=== PATIENT | male | born 1975 ===

== ENCOUNTER 2021-03-28 07:06 | Observation (INO) ==
[2021-03-28] MEDS ORDERED: Ondansetron 4 mg VIAL 2 MG/ML 2 ml VIAL IV ONE (08:13)
[2021-03-28] MEDS ORDERED: NS 0.9% 1000 ml BAG 1,000 ML IV ONE (08:13)
[2021-03-28] MEDS ORDERED: Famotidine IV 10 MG/ML 2 ml VIAL (20 mg) IV SLOW PU ONE (08:38)
[2021-03-28 09:31] LABS: Venous Bicarbonate HCO3 29.6 mmol/L (24-28)
[2021-03-28 09:36] LABS: ABS Lymphocytes 0.7 10^3/ul (1.0-4.8); ABS Monocytes 0.4 10^3/ul (0-0.8); ABS Neutrophils 12.6 10^3/ul (1.5-7.7); Eosinophil % 0.1 %; Hematocrit 45 % (42-52); Hemoglobin 15.3 g/dL (14.0-18.0); Lymphocyte % 5.3 %; Mean Corpuscular HGB Conc 34 g/dL (31-36); Mean Corpuscular Hemoglobin 31 pg (27-31); Mean Corpuscular Volume 93 fL (80-94); Mean Platelet Volume 8.3 fL (7.4-10.4); Platelet Count 264 10^3/uL (150-450); Red Blood Count 4.87 10^6 /uL (4.18-5.48); Red Cell Distribution Width 13 % (10-15); White Blood Count 13.8 10^3/uL (3.5-10.8)
[2021-03-28 10:04] LABS: ALT 10 U/L (7-52); AST 9 U/L (13-39); Albumin 4.5 g/dL (3.2-5.2); Albumin/Globulin Ratio 1.8 (1-3); Alkaline Phosphatase 46 U/L (35-149); Anion Gap 8 mmol/L (2-11); Blood Urea Nitrogen 19 mg/dL (6-24); CO2 Carbon Dioxide 27 mmol/L (22-32); Calcium 9.4 mg/dL (8.6-10.3); Chloride 101 mmol/L (101-111); EGFR African American 121.8 (>60); EGFR Non-African American 100.6 (>60); Globulin 2.5 g/dL (2-4); Glucose 141 mg/dL (70-100); Lipase < 10 U/L (11.0-82.0); Potassium 4.2 mmol/L (3.5-5.0); Sodium 136 mmol/L (135-145)
[2021-03-28] MEDS ORDERED: Iohexol 300 (CONTRAST) 10 ML SDV IV ONE (10:25)
[2021-03-28 10:37] LABS: Urine Appearance Clear; Urine Bilirubin Negative (Negative); Urine Blood Negative (Negative); Urine Color Yellow; Urine Glucose Negative (Negative); Urine Ketones 2+ (Negative); Urine Nitrite Negative (Negative); Urine Protein 1+(30 mg/dL) (Negative); Urine Specific Gravity 1.025 (1.002-1.030); Urine Urobilinogen Negative (Negative)
[2021-03-28 10:56] LABS: Urine Bacteria Absent (Absent); Urine Red Blood Cell Absent (Absent); Urine White Blood Cell Absent (Absent)
[2021-03-28] MEDS ORDERED: cefTRIAXone 1 gm/50 mL NS BAG 1 GM/50 ML BAG IV ONE (12:07)
[2021-03-28] MEDS ORDERED: metroNIDAZOLE IV 500 MG/100ML 500 MG/100 ML BAG IVPB ONE (12:07)
[2021-03-28] MEDS ORDERED: HYDROmorphone 0.5 MG/0.5 ML SYRINGE IV SLOW PU PRN (13:38)
[2021-03-28] MEDS ORDERED: metroNIDAZOLE IV 500 MG/100ML 500 MG/100 ML BAG IVPB SCH (14:00)
[2021-03-28] MEDS ORDERED: Ciprofloxacin 400mg IVPREMIX 400 MG/200 ML BAG IVPB SCH (14:00)
[2021-03-28] MEDS: Lactated Ringers 1000 ml BAG 1,000 ML IV SCH (16:17)
[2021-03-28] MEDS: Ciprofloxacin 400mg IVPREMIX 400 MG/200 ML BAG IVPB SCH (17:34)
[2021-03-28] MEDS: metroNIDAZOLE IV 500 MG/100ML 500 MG/100 ML BAG IVPB SCH (20:31)
[2021-03-29] MEDS: Lactated Ringers 1000 ml BAG 1,000 ML IV SCH ×2 (02:18→12:22)
[2021-03-29] MEDS: metroNIDAZOLE IV 500 MG/100ML 500 MG/100 ML BAG IVPB SCH ×3 (04:19→20:41)
[2021-03-29] MEDS: Ciprofloxacin 400mg IVPREMIX 400 MG/200 ML BAG IVPB SCH ×2 (05:43→16:58)
[2021-03-29 06:01] LABS: ABS Eosinophils 0.3 10^3/ul (0-0.6); ABS Lymphocytes 2.1 10^3/ul (1.0-4.8); ABS Monocytes 0.5 10^3/ul (0-0.8); ABS Neutrophils 4.6 10^3/ul (1.5-7.7); Eosinophil % 3.6 %; Hematocrit 40 % (42-52); Hemoglobin 13.9 g/dL (14.0-18.0); Lymphocyte % 27.8 %; Mean Corpuscular HGB Conc 35 g/dL (31-36); Mean Corpuscular Hemoglobin 32 pg (27-31); Mean Corpuscular Volume 92 fL (80-94); Mean Platelet Volume 8.3 fL (7.4-10.4); Platelet Count 210 10^3/uL (150-450); Red Blood Count 4.32 10^6 /uL (4.18-5.48); Red Cell Distribution Width 13 % (10-15); White Blood Count 7.5 10^3/uL (3.5-10.8)
[2021-03-29 06:09] LABS: Calcium 8.6 mg/dL (8.6-10.3); Potassium 3.9 mmol/L (3.5-5.0)
[2021-03-29 06:15] LABS: EGFR African American 127.1 (>60)
[2021-03-30] MEDS: metroNIDAZOLE IV 500 MG/100ML 500 MG/100 ML BAG IVPB SCH (04:52)
[2021-03-30] MEDS: Ciprofloxacin 400mg IVPREMIX 400 MG/200 ML BAG IVPB SCH (06:06)
[2021-03-30 07:24] VITALS: BP 125/77
== END 2021-03-30 11:14 | disposition home or self-care (01) ==
LOC: SSU 07:06 → ED 07:06 → SSU 16:02
PROVIDERS: ADMIT Internal Medicine; ATTEND Surgery Surgical Critical Care

== ENCOUNTER 2023-06-01 08:38 | Observation (INO) ==
[~2023-06-01 08:38] MED LIST: Buffered Lidocaine 1% SYRIN 1 ml INTRADERM ONE; HYDROmorphone 1 MG/1 ML SYRINGE IV PRN; Naloxone 0.4 mg VIAL 0.4 mg/ml 1 ml VIAL IV PRN; Ondansetron 4 mg VIAL 2 MG/ML 2 ml VIAL IV PRN
[2023-06-01] MEDS: Lactated Ringers 1000 ml BAG 1,000 ML IV SCH ×2 (09:22→14:36)
[2023-06-01 09:39] LABS: Rapid COVID-19 Molecular Undetected (Undetected)
[2023-06-01] MEDS ORDERED: Clindamycin 300 MG/D5W BAG 300 MG/50 ML BAG IV ONE (09:55)
[2023-06-01] MEDS ORDERED: Chlorhexidine MOUTHWASH 0.12% 15 ML UDC ONE (09:55)
[2023-06-01] MEDS ORDERED: Clindamycin 600 MG/NS BAG(*) 600 MG/50 ML BAG ONE (09:55)
[2023-06-01] MEDS ORDERED: Thrombin 5,000 UNITS 1 APPLIC KIT - topical use - TOPICAL ONE (10:17)
[2023-06-01] MEDS ORDERED: Lidocaine 1% w EPI 1:100,000 MDV 20 ML VIAL ONE (10:17)
[2023-06-01] MEDS ORDERED: ceFAZolin VIAL VIAL ONE (10:17)
[2023-06-01] MEDS ORDERED: Gelfoam Sponge SIZE 100 SPONGE ONE (10:17)
[2023-06-01] MEDS ORDERED: fentaNYL 100 mcg/2 ml 50 MCG/ML VIAL ONE ×2 (10:38→12:52)
[2023-06-01] MEDS ORDERED: Midazolam 2 mg/2 ml VIAL 1 mg/ml 2 ml VIAL (2 mg) ONE (10:38)
[2023-06-01] MEDS ORDERED: Rocuronium 50 mg VIAL 10 mg/ml 5 ml VIAL (50 mg) ONE ×2 (10:38→11:36)
[2023-06-01] MEDS ORDERED: Lidocaine 2% PF 5 ML VIAL ONE (10:43)
[2023-06-01] MEDS ORDERED: Propofol 10 MG/ML 20 ML BTL ONE (10:43)
[2023-06-01] MEDS ORDERED: HYDROmorphone 0.5 MG/0.5 ML SYRINGE ONE (11:17)
[2023-06-01] MEDS ORDERED: Ondansetron 4 mg VIAL 2 MG/ML 2 ml VIAL ONE (11:35)
[2023-06-01] MEDS ORDERED: Dexamethasone IV 4 MG/ML VIAL 1 ml VIAL ONE (11:35)
[2023-06-01] MEDS ORDERED: Calcium Carb (TUMS) 500 mg CHEW TAB PO PRN (12:25)
[2023-06-01] MEDS ORDERED: Magnesium Hydroxide LIQ 30 ML UDC PO PRN (12:25)
[2023-06-01] MEDS ORDERED: Senna TAB 8.6 mg TAB PO PRN (12:25)
[2023-06-01] MEDS ORDERED: Ondansetron 4 mg VIAL 2 MG/ML 2 ml VIAL IV PRN (12:25)
[2023-06-01] MEDS ORDERED: Morphine 2 MG/ML SYRINGE IV PRN (12:25)
[2023-06-01] MEDS: fentaNYL 100 mcg/2 ml 50 MCG/ML VIAL IV PRN ×3 (12:55→13:22)
[2023-06-01] MEDS ORDERED: Lactated Ringers 1000 ml BAG 1,000 ML IV SCH (13:00)
[2023-06-02 09:03] VITALS: BP 115/77
== END 2023-06-02 09:18 | disposition home or self-care (01) ==
LOC: EDACCT# → SSU 08:38 → OR 08:38
PROVIDERS: ADMIT Neurological Surgery; ATTEND Neurological Surgery